=== PATIENT | female | born 1990 | race African-American/Black ===

== ENCOUNTER 2022-07-11 07:50 | Emergency (ER) | payer OTHER ==
[~2022-07-11] VITALS: Ht 157.5 cm; Wt 44.0 kg
[2022-07-11 08:25] VITALS: BP 118/75
== END 2022-07-11 09:00 | disposition home or self-care (01) ==
LOC: ER 07:50
DX: S16.1XXA Strain of muscle, fascia and tendon at neck level, initial encounter (principal); S39.012A Strain of muscle, fascia and tendon of lower back, initial encounter; V49.9XXA Car occupant (driver) (passenger) injured in unspecified traffic accident, initial encounter; Y93.89 Activity, other specified; Y92.89 Other specified places as the place of occurrence of the external cause; Y99.8 Other external cause status
CPT/HCPCS: 72040; 72100